=== PATIENT | male | born 1970 | race Hispanic/Latino ===

== ENCOUNTER 2018-05-06 11:47 | Emergency (ER) | payer SELFPAY ==
[~2018-05-06] VITALS: Ht 177.8 cm; Wt 100.0 kg
[~2018-05-06 11:47] MED LIST: NAPROSYN500 MG PO
[2018-05-06 13:21] LABS: HEMATOCRIT 45.3 % (39.0-50.0); HEMOGLOBIN 15.3 g/dl (14.0-18.0); IMMATURE GRANULOCYTES 0.7 % (0.0-5.0); MEAN CELL VOLUME 95.2 fL CALC (80.0-100.0); MEAN CORPUSCULAR HGB 32.1 pG CALC (26.0-32.0); MEAN CORPUSCULAR HGB CONC 33.8 g/L CALC (32.0-36.0); NEUT# 11.9 thou/uL (1.82-7.42); RED BLOOD COUNT 4.76 mill/uL (4.70-6.10)
[2018-05-06 13:58] LABS: ANION GAP 20 (6-22 (CALC)); BILIRUBIN, TOTAL 1.3 mg/dL (0.0-1.4); BUN 12 mg/dL (9-20); BUN/CREATININE RATIO 18 (12-20 (CALC)); CARBON DIOXIDE 24 mmol/l (22-30); CHLORIDE 97 mmol/l (95-108); CREATININE 0.7 mg/dL (0.7-1.3); GFR > 60 ML/MIN (>=60 (CALC)); GFR FOR AFR.AMER. > 60 ML/MIN (>=60 (CALC)); POTASSIUM 4.1 mmol/l (3.5-5.1); SODIUM 138 mmol/l (137-146)
[2018-05-06 14:29] LABS: ALBUMIN 4.8 g/dL (3.2-5.0); ALKALINE PHOSPHATASE 99 u/l (38-126); SGOT/AST 72 u/l (17-59); TOTAL PROTEIN 9.2 g/dL (6.3-8.2)
[2018-05-06 15:30] VITALS: BP 140/85
== END 2018-05-06 15:30 | disposition home or self-care (01) | DRG 603 ==
LOC: ED 11:47
PROVIDERS: Emergency Medicine
DX: L03.115 Cellulitis of right lower limb (principal); T36.8X6A Underdosing of other systemic antibiotics, initial encounter; Z91.128 Patient's intentional underdosing of medication regimen for other reason

== ENCOUNTER 2018-05-10 12:35 | Emergency (ER) | payer SELFPAY ==
[~2018-05-10] VITALS: Ht 177.8 cm; Wt 93.0 kg
[2018-05-10] MEDS ORDERED: CLINDAMYCIN HC150 MG PO (13:53)
[2018-05-10 14:14] VITALS: BP 131/84
== END 2018-05-10 14:14 | disposition home or self-care (01) | DRG 950 ==
LOC: ED 12:35
DX: S81.801D Unspecified open wound, right lower leg, subsequent encounter (principal); X58.XXXD Exposure to other specified factors, subsequent encounter

== ENCOUNTER 2018-05-14 13:11 | Emergency (ER) | payer SELFPAY ==
[~2018-05-14] VITALS: Ht 177.8 cm; Wt 90.0 kg
[~2018-05-14 13:11] MED LIST changes: +CLINDAMYCIN HC150 MG PO
[2018-05-14 14:03] VITALS: BP 144/72
== END 2018-05-14 14:03 | disposition home or self-care (01) | DRG 950 ==
LOC: ED 13:11
DX: S81.801D Unspecified open wound, right lower leg, subsequent encounter (principal); L08.9 Local infection of the skin and subcutaneous tissue, unspecified; X58.XXXD Exposure to other specified factors, subsequent encounter

== ENCOUNTER 2020-05-29 06:07 | Emergency (ER) | payer SELFPAY ==
[~2020-05-29] VITALS: Ht 175.3 cm; Wt 82.0 kg
[~2020-05-29 06:07] MED LIST changes: +CLEOCIN300 MG PO; +NO MEDS; +SEPTRA DS1 TAB PO; +TORADOL PO
[2020-05-29 06:33] LABS: HEMOGLOBIN 14.5 g/dl (14.0-18.0); IMMATURE GRANULOCYTES 1.3 % (0.0-5.0); MEAN CELL VOLUME 93.6 fL CALC (80.0-100.0); MEAN CORPUSCULAR HGB 30.9 pG CALC (26.0-32.0); NEUT# 3.97 thou/uL (1.82-7.42); RED BLOOD COUNT 4.7 mill/uL (4.70-6.10); RED CELL DISTRI WIDTH 12.7 % (11.5-15.5)
[2020-05-29 07:02] LABS: ALBUMIN 4.3 g/dL (3.2-5.0); ALKALINE PHOSPHATASE 69 u/l (38-126); ANION GAP 13 (6-22 (CALC)); BILIRUBIN, TOTAL 0.9 mg/dL (0.0-1.4); BUN 11 mg/dL (9-20); BUN/CREATININE RATIO 16 (12-20 (CALC)); CARBON DIOXIDE 24 mmol/l (22-30); CHLORIDE 103 mmol/l (95-108); CREATININE 0.7 mg/dL (0.7-1.3); GFR > 60 ML/MIN (>=60 (CALC)); GFR FOR AFR.AMER. > 60 ML/MIN (>=60 (CALC)); POTASSIUM 3.9 mmol/l (3.5-5.1); SGOT/AST 38 u/l (17-59); SODIUM 137 mmol/l (137-146); TOTAL PROTEIN 7.4 g/dL (6.3-8.2)
[2020-05-29 07:04] LABS: ACT PARTIAL THROMBO TIME 24.3 SECONDS (20.0-32.5); INTERNATIONAL NORMALIZED RATIO 0.9 RATIO (0.7-1.3); PROTHROMBIN TIME 9.3 SECONDS (9.0-12.5)
[2020-05-29] MEDS ORDERED: NORVASC PO ×2 (07:27→07:31)
[2020-05-29 07:39] VITALS: BP 154/71
== END 2020-05-29 07:40 | disposition home or self-care (01) | DRG 151 ==
LOC: ED 06:07
DX: R04.0 Epistaxis (principal); I10 Essential (primary) hypertension; Z59.0 Homelessness

== ENCOUNTER 2023-01-25 14:16 | Emergency (ER) | payer SELFPAY ==
[~2023-01-25] VITALS: Ht 175.3 cm; Wt 86.0 kg
[2023-01-25] VITALS (9 sets, daily range): BP systolic 146–178; BP diastolic 102–114
[~2023-01-25 14:16] MED LIST changes: +NORVASC PO
[2023-01-25] MEDS ORDERED: ASPERCREME LIDOCA41 TOP (17:55)
[2023-01-25] MEDS ORDERED: PERCOCET 5/325M1 TAB PO (17:55)
[2023-01-25] MEDS ORDERED: METHOCARBAMOL500 MG PO (17:55)
== END 2023-01-25 18:14 | disposition home or self-care (01) | DRG 556 ==
LOC: ED 14:16
DX: M25.511 Pain in right shoulder (principal); I10 Essential (primary) hypertension